=== PATIENT | male | born 1980 | race Caucasian/White ===

== ENCOUNTER → 2019-11-29 | Outpatient (CLI) | payer BC, SELFPAY ==
[2019-11-29 11:40] LABS: Pathologist Comment May follow
[2019-11-29 12:13] LABS: Synovial Fld Mononuclear WBC % 70.1 %; Synovial Fld Polynuclear WBC # 0.796 10^3/uL; Synovial Fld Polynuclear WBC % 29.9 %
[2019-11-29 12:36] LABS: AUTO B FLUID DILUENT BKGD CT WBC <0.1 RBC <0.01 (W<.1,R<.01)
[2019-11-29 12:38] LABS: CRYSTALS, BODY FLUID CALCIUM PYROPHOS; Source- Body Fluid SYNOVIAL
[2019-11-29 12:39] LABS: Appearance /Synovial Fluid Clear (CLEAR); Color / Synovial Fluid Yellow (Pale Yellow)
[2019-11-29 13:24] LABS: Lymph 16 %; Monocyte /Synovial Fluid 40 %; Neutrophil 44 % (0-25)
[2019-11-29 13:35] LABS: Body Fluid QC Type(s) BF1Q,BF2Q; RBC /Synovial Fluid 513 /mm3 (0)
[2019-12-02 12:16] LABS: Pathologist Review Reviewed
== END | disposition home or self-care (01) ==
LOC: LABSPEC 11:18
PROVIDERS: PCP Family Medicine; Referring Provider Physician Assistant Surgical; Visit Provider Physician Assistant Surgical
DX: M25.461 Effusion, right knee (principal)
CPT/HCPCS: 87070; 87075; 87205; 89050; 89051; 89060